=== PATIENT | male | born 2000 | race Caucasian/White ===

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

== ENCOUNTER 2022-03-21 21:05 | Emergency (ER) | payer OTHER, SELFPAY ==
--- OUTSIDE RECORDS SUMMARY | 2022-03-21 21:09 | XMS_ITS ---
:2000 Author Support Name Relationship Address Phone Denise White Unavailable [address] [phone] [place] [address] Patrizia White Unavailable [address] [phone] [place] [address] PROBLEMS Type Condition ICD9-CM Code [id number] Code Onset Condition SNO MED Code Dates Status Problem Allergic J30.81 Active 432267621 rhinitis due to animal dander Problem Allergic J30.89 Active 363150669 rhinitis due to dust mite Problem Eczema of both L30.9 Active 92169 8007 hands Problem Peanut allergy Z91.010 Active 62341 009 ALLERGIES No Known Allergies ENCOUNTERS Encounter Location Date Diagnosis [facility] [address] Mar, Peanut allergy Z91.010 ; Asthma [place], [place] Eczema of both [place]s [address] L30.9 ; Allergic rhinitis due to dust mite J30.89 and Allergic rhinitis due to animal dander J30.81 IMMUNIZATIONS No Known Immunizations SOCIAL HISTORY Qualifiers Date Never Smoker REASON FOR REFERRAL FUNCTIONAL STATUS PLAN OF CARE Activity Details Follow Up 1-2 years Reason: Future Appointment Provider Name:Lalita topete, 2022-04-02 10:30:00 AM, [address], [place], [id number], VITAL SIGNS Heart Rate 84 bpm 2021-04-03 Respiratory Rate 18 /min 2021-04-03 Oximetry 96 % 2021-04-03 Height 75 in 2021-04-03 Weight 269 lbs 2021-04-03 BMI 33.62 kg/m2 2021-04-03 MEDICATIONS Medication Instructions Dosage Frequency Start End Duration Statu s Date Date EpiPen 2-Cesar Injection once as directed 18 Mar, 30 days Active 0.3 MG/0.3ML as needed 2021 Claritin 10 MG Orally Once a 1 tablet 24h 30 day(s) Not-Takin day g EpiPen 2-Cesar Injection as inject into 30 days Ac tive 0.3 MG/0.3ML needed outer thigh for severe allergic reaction PROCEDURES Procedure Date Ordered Result Body Site PRICK TESTS Apr 03, 2021 RESULTS No Results REASON FOR VISIT Insurance Providers [facility] Member Patient Patient Patient Patient Patient Subscriber Subscriber Subscriber Group Insurance Plan Plan Plan Plan ID Relationship Address Phone Name Date of ID Name Date of No Type Insurance Insurance Insurance Coverage to Subscriber Address Phone Name Dates [facility] [phone] [facility] [id number] [facility] [id number] Plans, [id number] Plans, [employer] [facility] [id number] MEDICAL (GENERAL) HISTORY Type Description Date Medical History Allergic Rhinitis Medical History Peanut allergy Surgical History tonsillectomy and adenoidectomy Surgical History oral surgery
[2022-03-21 21:10] VITALS: BP 137/76; PULSE 79; RESP 16; TEMP 37.1; O2SAT 100
--- NOTE | 2022-03-21 21:27 | ED.GENADUL_ITS ---
Discharge Plan Disposition Patient Disposition: Home Condition: Improving Discharge Details Chief Complaint: Laceration Clinical Impression: Facial laceration Primary Care Provider: Tamia,Local ED Provider: Rohith Abdi Home Meds and New Rx's Prescriptions: No Action No Known Home Meds Discharge Instructions Instructions: Facial Laceration (ED) Additional Instructions: Laceration repaired without difficulty. Keep the area clean and dry, you may apply antibiotic ointment daily. [id number] Tylenol and/or Motrin as directed for discomfort. Please watch for new or worsening symptoms and return to the ER for any concerns. Lastly, return to the ER in 5 days to have the sutures removed. Medical Decision Making 21-year-old gentleman who denies significant past medical history, reports that his tetanus status is up-to-date, presents for a facial laceration status post mechanical slip and fall while ice skating striking the right side of his face. He denies symptoms prior to the fall. He denies LOC, headache, visual changes, neck pain, nausea or vomiting. Denies numbness, tingling, weakness or incontinence. Patient appears well, nontoxic, neurologically intact. Laceration repaired without difficulty. Standard discharge and return precautions were provided. Patient understands, is agreeable to this plan, and has no additional questions or concerns upon discharge. This documentation was generated using [employer] dictation system, please disregard any oddities of phrase or misspellings. Medical Records Medical records reviewed: Yes I reviewed the patient's medical records. HPI General Mode of arrival: ambulatory . Date/Time Provider Initiated Documentation: 03/21/22 21:17 . Limitations to Documentation: no limitations . Information obtained by: patient . History of Present Illness 21 year old M presents to the emergency department with the chief complaint of facial lac, described as mild, with intensity rated at 2. Quality is described as aching, and is localized to the face. Patient reports no radiation. Patient started experiencing this hour(s) (2) and it has been constant. No relieving factors improve symptom(s), No exacerbating factors reported . Patient notes no other symptoms.. Patient did receive the following treatments prior to arrival, none Related Data Home Medications Medication Instructions Recorded Confirmed Unknown [No Known Home Meds] 11/06/19 03/21/22 Allergies Allergy/AdvReac Type Severity Reaction Status Date / Time animal dander Allergy Unverified 03/21/22 21:16 house dust Allergy Unverified 03/21/22 21:16 peanut Allergy Unverified 03/21/22 21:16 General Stated Complaint: Laceration AIDE: 4 Review of Systems Constitutional Constitutional: Denies headache(s) and Denies weakness Eyes Eyes: Denies change in vision ENT Ears, Nose, Mouth, and Throat: Denies headache(s) and Denies neck pain Gastrointestinal Gastrointestinal: Denies abdominal pain, Denies nausea and Denies vomiting Musculoskeletal Musculoskeletal: Denies neck pain, Denies numbness and Denies tingling Neurologic Neurologic: Denies headache(s), Denies numbness, Denies tingling and Denies weakness PFSH All Active Problems (Updated 03/21/22 @ 21:47 by SHANNA Lopez) Facial laceration (Acute) Social History Smoking/Tobacco Use Status: Never Smoking risk assessment performed?: Yes Substance use type: does not use Do you feel safe at home: Yes Do you feel safe in your relationship?: Yes Exam Const General: cooperative, healthy appearing, comfortable and no acute distress Orientation: alert, awake and oriented x3 HENMT Head: normal to inspection, no palpable skull fracture, normocephalic and atraumatic Face images: 1. 2-1/2 cm well approximated laceration. Minimal local swelling and tenderness. No crepitus. No active bleeding. Mouth: moist mucous membranes Teeth and gingiva: dentition normal Throat: posterior oropharynx normal Eyes General: appearance normal, both eyes and all related structures Alignment and Position: alignment normal Periorbital: periorbital findings normal Eyelids: eyelids normal Conjunctivae: conjunctivae normal Sclera: sclerae normal Cornea: corneas normal Pupils: PERRL EOM: EOM intact bilaterally Direct ophthalmoscopy: normal light reflex Neck Neck: normal visual inspection, full ROM, trachea midline, supple and nontender Resp Effort & Inspection: normal respiratory effort and able to speak in complete sentences Back/Spine/Pelvis Back: No back tenderness Skin General skin exam: no rashes or lesions noted Neuro General: patient alert, patient awake, patient oriented x3, moves all extremities and no focal motor deficits Cranial Nerves: CN's II-XI intact bilaterally Cognition: normal cognition Speech: speech normal Gait: normal gait Motor: muscle tone normal throughout Sensory Exam: no sensory deficits noted Psych Appearance: grossly normal Mental Status: mental status grossly normal Course Vital Signs Vital signs: Vital Signs Temperature 37.1 C 03/21/22 21:10 Pulse 79 03/21/22 21:10 Respiratory Rate 16 03/21/22 21:10 Blood Pressure 137/76 03/21/22 21:10 Pulse Oximetry 100 03/21/22 21:10 Temperature 37.1 C 03/21/22 21:10 Temperature Source Temporal Artery Scan 03/21/22 21:10 Pulse 79 03/21/22 21:10 Respiratory Rate 16 03/21/22 21:10 Respiratory Effort 03/21/22 21:10 Blood Pressure 137/76 03/21/22 21:10 Blood Pressure Position Sitting 03/21/22 21:10 Pulse Oximetry 100 03/21/22 21:10 Oxygen Delivery Method Room Air 03/21/22 21:10 Oxygen Flow Rate 0 03/21/22 21:10 Pain Level 2 03/21/22 21:10 Procedures Laceration Laceration 1: Site: face Side (If applicable): right Size (cm): 2.5 Description: linear and clean Depth: simple, single layer Local Anesthetic: Lidocaine 2% and with Epi Amount of anesthesia used (mL): 3 Pre-repair: wound explored, irrigated extensively and deep structures intact Skin layer closed with: nylon Size (cm): 6-0 Number of sutures: 4 Technique: simple, interrupted PAWSS Have you Been Recently Intoxicated or Drunk Within the Last 30 days?: Yes Have you Ever Experienced Previous Episodes of Alcohol Withdrawal?: No Have you ever Experienced Withdrawal Seizures?: No Have you ever Experienced Delirium Tremens(DT)s?: No Have you ever undergone Alcohol Rehabilitation Treatment (i.e, inpt ot outpatient treatment programs)?: No Have you ever Experienced Blackouts?: No Have you ever Combined Alcohol with other Downers within the last 90 days?: No Have you ever Combined Alcohol with any other Substance of Abuse during the last 90 days?: No Positive Blood Alcohol level on Presentation? [PCS.BAL]: No Evidence of Increased Autonomic Activity (i.e. HR>120, tremor, sweating, agitation, nausea)?: No Result: 1
== END 2022-03-21 21:56 | disposition home or self-care (01) ==
PROVIDERS: Emergency Provider Physician Assistant
DX: S01.111A Laceration without foreign body of right eyelid and periocular area, initial encounter (principal); Z23 Encounter for immunization; W01.0XXA Fall on same level from slipping, tripping and stumbling without subsequent striking against object, initial encounter; Y93.21 Activity, ice skating
CPT/HCPCS: 12011; 90471; 99282

== ENCOUNTER 2022-03-26 17:34 | Emergency (ER) | payer OTHER, SELFPAY ==
[2022-03-26 17:37] VITALS: BP 135/67; PULSE 65; RESP 18; TEMP 36.8; O2SAT 100
--- NOTE | 2022-03-26 17:47 | ED.PROG_ITS ---
Date of service: 03/26/22 Time of Service: 17:48 Medical Decision Making Patient presenting for suture removal. Right eyebrow laceration repaired 5 days ago. Laceration looks great with no evidence of infection. 4 sutures removed without difficulty. Patient will continue local wound care for the next couple of days. Exam Narrative Exam Narrative: Const: WDWN male in NAD. HEENT: NC. Well healed linear laceration right eyebrow. Minor bruising. Eyes: Normal conjunctiva and sclera. Neck: Supple. Trachea midline. Neuro: A+O x 3. Normal speech, mentation, gait. Cranial nerves II - XII gr ossly intact. No gross motor or sensory deficit. Skin: Warm and dry without erythema. Narrative Patient presenting for suture removal. He has no complaints. Discharge Plan Disposition Patient Disposition: Home Discharge Details Chief Complaint: SutureRem Clinical Impression: Encounter for removal of sutures Primary Care Provider: Susi Cantrell ED Provider: Martin Carter Home Meds and New Rx's Prescriptions: No Action No Known Home Meds Discharge Instructions Additional Instructions: You were seen for suture removal. Your wound looks fine and has healed well. Continue local wound care for a few more days. Return to ED if any concerns.
== END 2022-03-26 17:51 | disposition home or self-care (01) ==
PROVIDERS: Emergency Provider Emergency Medicine
DX: S01.111D Laceration without foreign body of right eyelid and periocular area, subsequent encounter (principal); X58.XXXD Exposure to other specified factors, subsequent encounter; Z48.02 Encounter for removal of sutures

== ENCOUNTER 2022-06-02 17:47 | Emergency (ER) | payer OTHER, SELFPAY ==
[2022-06-02 17:49] VITALS: BP 138/66; PULSE 86; RESP 16; TEMP 37; O2SAT 99
--- NOTE | 2022-06-02 18:51 | ED.GENADUL_ITS ---
Discharge Plan Disposition Patient Disposition: Home Discharge Details Clinical Impression: Lumbar back sprain Primary Care Provider: Tamia,Local ED Provider: Jhnony Sebastian Home Meds and New Rx's Prescriptions: New cyclobenzaprine 10 mg tablet 10 mg PO TID PRN (Reason: muscle spasm) Qty: 15 0RF ibuprofen [IBU] 600 mg tablet 600 mg PO QID PRN (Reason: pain) Qty: 20 0RF Discharge Instructions Instructions: Back Pain (ED), Lower Back Exercises (ED) Additional Instructions: If you develop any new or significant worsening of symptoms feel free to return the emergency department for reassessment otherwise follow-up with your primary care provider or local urgent care if not seeing signs of improvement in the next 1 to 2 weeks. This evening please take the provided muscle relaxers before bed along with 600 mg of [id number] ibuprofen. Otherwise you may start the prescribed medications as directed on packaging tomorrow. Referrals: Primary Care Provider [Outside] Discharge Data Discharge Date/Time-TO BE ENTERED AT DEPARTURE: 06/02/22 19:11 Medical Decision Making Patient presenting to the emergency department for chief complaint of back pain. Patient reports approximately 1 month ago while exercising he slightly pulled the right lower lumbar region of his back. It did improve after couple days but over the past week or so it has returned. He states that certain activities or stretches seems to worsen the pain. At rest discomfort is minimal to none. Patient denies any fever chills, change in bowel or bladder function, saddle anesthesia. Does state some radiating pain and numbness down right leg but denies any severe weakness. Examination is unremarkable and I feel that patient is LOW risk for ABDOMINAL AORTIC ANEURYSM, CAUDA EQUINA SYNDROME, EPIDURAL MASS LESION, SPINAL STENOSIS, OR HERNIATED DISK CAUSING SEVERE STENOSIS, thus I consider the discharge disposition reasonable. We have discussed the diagnosis and risks, and we agree with discharging home to follow-up with their primary doctor. We also discussed returning to the Emergency Department immediately if new or worsening symptoms occur. We have discussed the symptoms which are most concerning (e.g., saddle anesthesia, urinary or bowel incontinence or retention, changing or worsening pain) that necessitate immediate return. Will recommend patient uses NSAIDs on more regular basis for pain and discomfort, perform back stretches, and use muscle relaxers for any sharp shooting discomfort. After discussion of diagnosis and plan of care patient has no further needs, questions, or concerns and states clear understanding to return to the emergency department for any worsening symptoms. This documentation was generated using [employer] dictation system, please disregard any oddities of phrase or misspellings. HPI General Mode of arrival: ambulatory . Date/Time Provider Initiated Documentation: 06/02/22 18:30 . Limitations to Documentation: no limitations . Information obtained by: patient and RN notes reviewed . History of Present Illness 21 year old M presents to the emergency department with the chief complaint of Back pain, described as mild, with intensity rated at 2. Quality is described as aching and sharp, Patient started experiencing this week(s) (3) and it has been intermittent. Rest improves symptom(s), Movement worsens symptoms . Patient notes no other symptoms.. Patient did receive the following treatments prior to arrival, NSAID Related Data Home Medications Medication Instructions Recorded Confirmed cyclobenzaprine 10 mg tablet 10 mg PO TID PRN muscle spasm #15 06/02/22 tabs ibuprofen 600 mg tablet (IBU) 600 mg PO QID PRN pain #20 tabs 06/02/22 Previous Rx's Medication Instructions Recorded cyclobenzaprine 10 mg tablet 10 mg PO TID PRN muscle spasm #15 06/02/22 tabs ibuprofen 600 mg tablet (IBU) 600 mg PO QID PRN pain #20 tabs 06/02/22 Allergies Allergy/AdvReac Type Severity Reaction Status Date / Time animal dander Allergy Unverified 03/21/22 21:16 house dust Allergy Unverified 03/21/22 21:16 peanut Allergy Unverified 03/21/22 21:16 General Stated Complaint: Nk/Back Pain AIDE: 4 PFSH All Active Problems (Updated 06/02/22 @ 18:53 by Jhonny Sebastian NP) Lumbar back sprain (Acute) Social History Smoking/Tobacco Use Status: Never Smoking risk assessment performed?: Yes Substance use type: does not use Do you feel safe at home: Yes Do you feel safe in your relationship?: Yes Exam Const General: cooperative and no acute distress Orientation: alert, awake and oriented x3 Neck Neck: normal visual inspection, full ROM and no meningeal signs Resp Effort & Inspection: normal respiratory effort Auscultation: clear to auscultation bilaterally Cardio Rate: regular rate Rhythm: regular rhythm Heart Sounds: S1 normal and S2 normal GI Palpation: no hepatosplenomegaly, no aortic enlargement, no masses and no pulsatile masses Back/Spine/Pelvis Thoracic/Lumbar Spine: pain with thoraco-lumbar ROM, paraspinal tenderness (on right), thoraco-lumbar ROM limited, No thoracic spinal tenderness and No lumbar spinal tenderness Pelvis: no pain with anterior-posterior compression, no pain with lateral compression, no buttock ecchymosis and no buttock tenderness Neuro General: patient alert, patient awake and patient oriented x3 DTR's: Rt Patellar: 2+, Lt Patellar: 2+, Rt Ankle: 2+ and Lt Ankle: 2+ Course Vital Signs Vital signs: Vital Signs Temperature 37.0 C 06/02/22 17:49 Pulse 86 06/02/22 17:49 Respiratory Rate 16 06/02/22 17:49 Blood Pressure 138/66 06/02/22 17:49 Pulse Oximetry 99 06/02/22 17:49 Temperature 37.0 C 06/02/22 17:49 Pulse 86 06/02/22 17:49 Respiratory Rate 16 06/02/22 17:49 Respiratory Effort Normal 06/02/22 18:16 Blood Pressure 138/66 06/02/22 17:49 Blood Pressure Position Sitting 06/02/22 17:49 Pulse Oximetry 99 06/02/22 17:49 Oxygen Delivery Method Room Air 06/02/22 17:49 Oxygen Flow Rate 0 06/02/22 17:49 Pain Level 2 06/02/22 17:49
[2022-06-02] MEDS: Cyclobenzaprine 10 MG TAB, 3 TABS/BTL PO (19:12)
== END 2022-06-02 19:11 | disposition home or self-care (01) ==
PROVIDERS: Emergency Provider Nurse Practitioner Family
DX: S33.5XXA Sprain of ligaments of lumbar spine, initial encounter (principal); X58.XXXA Exposure to other specified factors, initial encounter
CPT/HCPCS: 99283

== ENCOUNTER 2022-06-16 17:17 | Emergency (ER) | payer OTHER, SELFPAY ==
[2022-06-16 17:23] VITALS: TEMP 37.3
[2022-06-16 17:24] VITALS: BP 151/68; PULSE 80; RESP 18; O2SAT 100
--- NOTE | 2022-06-16 17:30 | DI.RAD_ITS ---
Exam(s) XR HIP RT COMPLETE AP PELVIS EXAM: XR HIP RT COMPLETE AP PELVIS CLINICAL HISTORY: fall. TECHNIQUE: 2D digital imaging was performed of the right hip. Three images were obtained. AP pelvis and lateral right hip views were obtained. COMPARISON: No exams were available for comparison FINDINGS: BONES: No acute fracture is present. No bony destructive lesion is seen. JOINTS: No dislocation present. The joint space is well maintained. SOFT TISSUE: Normal. IMPRESSION: Unremarkable radiographs of the right hip. Unremarkable radiographs of the pelvis. DATA REPOSITORY: RADIATION DOSE DELIVERED:
--- NOTE | 2022-06-16 17:30 | DI.RAD_ITS ---
Exam(s) XR LUMBAR SPINE COMPLETE EXAM: XR LUMBAR SPINE COMPLETE CLINICAL HISTORY: back pain. TECHNIQUE: 2D digital imaging was performed of the lumbar spine. Five images were obtained. AP, la teral, right oblique, left oblique and L5-S1 spot views were obtained. COMPARISON: No exams were available for comparison FINDINGS: BONES: No fracture or destructive lesion. Vertebral bodies are unremarkable. No facet hypertrophy roberto ntified. DISKS: Intervertebral disc spaces are maintained. ALIGNMENT: Lumbar spinal alignment is within normal limits. No spondylolysis or spondylolisthesis. SOFT TISSUE: Normal. IMPRESSION: Unremarkable radiographs of the lumbar spine. DATA REPOSITORY: RADIATION DOSE DELIVERED:
--- NOTE | 2022-06-16 18:06 | DI.VRAD_ITS ---
PROCEDURE INFORMATION: Exam: XR Right Hip Exam date and time: 06/16/2022 17:53 Age: 21 years old Clinical indication: Other: Fall. Pain TECHNIQUE: Imaging protocol: Radiologic exam of the right hip. Views: 2 or 3 views hip with pelvis when performed. COMPARISON: No relevant prior studies available. FINDINGS: Bones/joints: No acute fracture or subluxation. Soft tissues: Unremarkable. IMPRESSION: No acute bony pathology. Dictated and Authenticated by: Paloma Morgan MD. Ordering:SEYMOUR Barry MD
--- NOTE | 2022-06-16 18:06 | DI.VRAD_ITS ---
PROCEDURE INFORMATION: Exam: XR Lumbosacral Spine Exam date and time: 06/16/2022 17:56 Age: 21 years old Clinical indication: Other: Back pain/fall TECHNIQUE: Imaging protocol: Radiologic exam of the lumbosacral spine. Views: 4 or 5 views. COMPARISON: CR XR HIP RT COMPLETE AP PELVIS 06/16/2022 17:53 FINDINGS: Bones/joints: No acute fracture or subluxation. No significant degenerative changes are seen. Soft tissues: Unremarkable. IMPRESSION: No acute bony pathology. Dictated and Authenticated by: Paloma Morgan MD. Ordering:SEYMOUR Barry MD
--- NOTE | 2022-06-16 18:22 | W.ED.GENAD ---
Discharge Plan Disposition Patient Disposition: Home Discharge Details Clinical Impression: Lumbar back sprain Primary Care Provider: Unknown,Unknown ED Provider: Jhonny Sebastian Home Meds and New Rx's Prescriptions: No Action cyclobenzaprine 10 mg tablet 10 mg PO TID PRN (Reason: muscle spasm) Qty: 15 0RF Patient Comments: not taking ibuprofen [IBU] 600 mg tablet 600 mg PO QID PRN (Reason: pain) Qty: 20 0RF Discharge Instructions Instructions: Acute Low Back Pain (ED) Additional Instructions: You may continue to use [id number] ibuprofen or acetaminophen as needed for discomfort. Continue to perform the low back exercises and follow-up with physical therapy and primary care for reassessment. Stand Alone Forms: Physical Therapy Referral Referrals: Primary Care Provider [Outside] Discharge Data Discharge Date/Time-TO BE ENTERED AT DEPARTURE: 06/16/22 18:45 Medical Decision Making Patient presenting to the emergency department for chief complaint of continued back pain. Patient was seen by myself for lumbar back strain. At that time we did not perform any radiological imaging because everything was apparently soft tissue. Patient did state fall with continued pain down the right leg. A he did state some improvement with stretching and ibuprofen but continued to have discomfort. Physical exam does show tenderness to right proximal hip mainly to the bony prominences and right SI joint. Patient does state discomfort with range of motion. Exam is otherwise unremarkable. Given fall and continued symptoms we will perform radiological imaging also given bounce back to the emergency department. Patient did state he took medication prior to arrival and does not need any meds at this time. Review of radiological imaging shows no worrisome findings. We will give patient a referral to physical therapy otherwise recommend follow-up with primary care provider. After discussion of diagnosis and plan of care patient has no further needs, questions, or concerns and states clear understanding to return to the emergency department for any worsening symptoms. This documentation was generated using [employer] dictation system, please disregard any oddities of phrase or misspellings. Imaging Data Radiologic Study: Attestation: I personally reviewed and interpreted this imaging study as follows: Imaging: X-Ray Radiologist's impression: Exam(s) PROCEDURE INFORMATION: Exam: XR Right Hip Exam date and time: 06/16/2022 17:53 Age: 21 years old Clinical indication: Other: Fall. Pain TECHNIQUE: Imaging protocol: Radiologic exam of the right hip. Views: 2 or 3 views hip with pelvis when performed. COMPARISON: No relevant prior studies available. FINDINGS: Bones/joints: No acute fracture or subluxation. Soft tissues: Unremarkable. IMPRESSION: No acute bony pathology. Radiologic Study #2: Imaging: X-Ray Radiologist's impression: Exam(s) PROCEDURE INFORMATION: Exam: XR Lumbosacral Spine Exam date and time: 06/16/2022 17:56 Age: 21 years old Clinical indication: Other: Back pain/fall TECHNIQUE: Imaging protocol: Radiologic exam of the lumbosacral spine. Views: 4 or 5 views. COMPARISON: CR XR HIP RT COMPLETE AP PELVIS 06/16/2022 17:53 FINDINGS: Bones/joints: No acute fracture or subluxation. No significant degenerative changes are seen. Soft tissues: Unremarkable. IMPRESSION: No acute bony pathology. HPI General Mode of arrival: ambulatory. Date/Time Provider Initiated Documentation: 06/16/22 17:25. Limitations to Documentation: no limitations. Information obtained by: patient and RN notes reviewed. History of Present Illness 21 year old M presents to the emergency department with the chief complaint of back and right hip pain , described as moderate, with intensity rated at 4. Quality is described as aching, and is localized to the back, right and lower extremity. Patient started experiencing this week(s) and it has been intermittent. No relieving factors improve symptom(s), No exacerbating factors reported . Patient notes no other symptoms.. Patient did receive the following treatments prior to arrival, NSAID Related Data Home Medications Medication Instructions Recorded Confirmed cyclobenzaprine 10 mg tablet 10 mg PO TID PRN muscle spasm #15 06/02/22 tabs ibuprofen 600 mg tablet (IBU) 600 mg PO QID PRN pain #20 tabs 06/02/22 06/16/22 Previous Rx's Medication Instructions Recorded cyclobenzaprine 10 mg tablet 10 mg PO TID PRN muscle spasm #15 06/02/22 tabs ibuprofen 600 mg tablet (IBU) 600 mg PO QID PRN pain #20 tabs 06/02/22 Allergies Allergy/AdvReac Type Severity Reaction Status Date / Time animal dander Allergy Unverified 06/16/22 17:25 house dust Allergy Unverified 06/16/22 17:25 peanut Allergy Unverified 06/16/22 17:25 General Stated Complaint: Nk/Back Pain AIDE: 4 Review of Systems Constitutional Constitutional: Denies chills and Denies fever(s) Cardiovascular Cardiovascular: Denies chest pain and Denies dyspnea on exertion Respiratory Respiratory: Denies cough and Denies dyspnea on exertion Gastrointestinal Gastrointestinal: Denies abdominal pain, Denies change in bowel habits, Denies diarrhea, Denies nausea and Denies vomiting Genitourinary Genitourinary: Denies difficulty urinating and Denies urinary incontinence Musculoskeletal Musculoskeletal: Reports as per HPI and Reports back pain Neurologic Neurologic: Denies sensory deficit PFSH All Active Problems (Updated 06/16/22 @ 18:36 by Jhonny Sebastian NP) Lumbar back sprain (Acute) Social History Smoking/Tobacco Use Status: Never Smoking risk assessment performed?: Yes Substance use type: does not use Do you feel safe at home: Yes Do you feel safe in your relationship?: Yes Exam Const General: cooperative and no acute distress Orientation: alert, awake and oriented x3 Neck Neck: normal visual inspection, full ROM and no meningeal signs Resp Effort & Inspection: normal respiratory effort Auscultation: clear to auscultation bilaterally Cardio Rate: regular rate Rhythm: regular rhythm Heart Sounds: S1 normal and S2 normal GI Palpation: no hepatosplenomegaly, no aortic enlargement, no masses and no pulsatile masses Back/Spine/Pelvis Thoracic/Lumbar Spine: pain with thoraco-lumbar ROM, paraspinal tenderness (on right), thoraco-lumbar ROM limited, No thoracic spinal tenderness and No lumbar spinal tenderness Pelvis: no pain with anterior-posterior compression, no pain with lateral compression, no buttock tenderness and sciatic notch tenderness on the right Neuro General: patient alert, patient awake and patient oriented x3 Extrem General: full ROM and normal exam except as noted Right lower extremity: hip/thigh Details: tenderness Location: of the hip Location: laterally Course Vital Signs Vital signs: Vital Signs Temperature 37.3 C 06/16/22 17:23 Temperature 37.3 C 06/16/22 17:23 Temperature Source Temporal Artery Scan 06/16/22 17:23 Pulse 80 06/16/22 17:24 Respiratory Rate 18 06/16/22 17:24 Respiratory Effort Normal, Non-Labored 06/16/22 17:24 Blood Pressure 151/68 H 06/16/22 17:24 Pulse Oximetry 100 06/16/22 17:24 Oxygen Delivery Method Room Air 06/16/22 17:24 Oxygen Flow Rate 0 06/16/22 17:24 PAWSS Have you Been Recently Intoxicated or Drunk Within the Last 30 days?: No Have you Ever Experienced Previous Episodes of Alcohol Withdrawal?: No Have you ever Experienced Withdrawal Seizures?: No Have you ever Experienced Delirium Tremens(DT)s?: No Have you ever undergone Alcohol Rehabilitation Treatment (i.e, inpt ot outpatient treatment programs)?: No Have you ever Experienced Blackouts?: No Have you ever Combined Alcohol with other Downers within the last 90 days?: No Have you ever Combined Alcohol with any other Substance of Abuse during the last 90 days?: No Positive Blood Alcohol level on Presentation? [PCS.BAL]: No Evidence of Increased Autonomic Activity (i.e. HR>120, tremor, sweating, agitation, nausea)?: No Result: 0
== END 2022-06-16 18:45 | disposition home or self-care (01) ==
PROVIDERS: Emergency Provider Nurse Practitioner Family
DX: S33.5XXD Sprain of ligaments of lumbar spine, subsequent encounter (principal); X58.XXXD Exposure to other specified factors, subsequent encounter; M25.551 Pain in right hip
CPT/HCPCS: 99284; 72110; 73502; 99283